=== PATIENT | male | born 1990 | race Two or more races ===

== ENCOUNTER 2021-04-14 15:20 | Emergency (ER) | payer OTHER ==
[~2021-04-14] VITALS: Ht 162.6 cm; Wt 94.9 kg
[2021-04-14] MEDS ORDERED: SIMVASTATIN20 MG PO (16:03)
[2021-04-14] MEDS ORDERED: LOPID600 MG PO (16:03)
[2021-04-14] MEDS ORDERED: CIPRO500 MG PO (16:39)
== END 2021-04-14 16:53 | disposition home or self-care (01) ==
LOC: FSED 16:03
DX: N50.812 Left testicular pain (principal); E78.5 Hyperlipidemia, unspecified; F17.210 Nicotine dependence, cigarettes, uncomplicated
CPT/HCPCS: 76870; 81003; 99283